=== PATIENT | male | born 1980 | race Caucasian/White ===

== ENCOUNTER 2022-05-17 01:19 | Emergency (ER) | payer BC, SELFPAY ==
[2022-05-17 01:59] VITALS: BP 141/80; PULSE 52; RESP 22; O2SAT 99; BMI 32.5
[2022-05-17 02:06] LABS: Hematocrit 45.6 % (42.0-52.0); Hemoglobin 16.6 g/dl (14.0-18.0); Mean Corpuscular HGB Conc 36.4 g/dl (31.0-36.0); Mean Corpuscular Hemoglobin 32.8 pg (27.0-33.0); Mean Corpuscular Volume 90.1 fL (80.0-98.0); Mean Platelet Volume 9.7 fL (9.4-12.4); Platelet Count 212 X10*3/uL (160-400); Red Blood Count 5.06 X10*6/uL (4.60-5.80); Red Cell Distribution Width 12.5 % (11.0-16.0)
[2022-05-17 02:24] LABS: Alanine Aminotransferase 43 U/L (0-40); Albumin Level 4.6 g/dL (3.5-5.0); Alkaline Phosphatase 81 U/L (39-117); Anion Gap 17 (12-20); Aspartate Amino Transferase 29 U/L (5-37); Bilirubin Total 0.7 mg/dL (0.0-1.0); Blood Urea Nitrogen 16 mg/dL (9-16); Calcium 9.6 mg/dL (8.4-10.2); Carbon Dioxide 26 mmol/L (22-29); Chloride 103 mmol/L (96-108); Creatinine Clr Calc Pharmacy 107.8; Estimated Glomerular Filt Rate > 60; Glucose Random 119 mg/dL (60-115); Potassium 3.8 mmol/L (3.3-5.1); Sodium 142 mmol/L (135-145); Total Protein 7.8 g/dL (6.5-8.0)
== END 2022-05-17 05:23 | disposition left against medical advice (07) ==
PROVIDERS: Emergency Provider Emergency Medicine
DX: R10.9 Unspecified abdominal pain (principal); R11.0 Nausea
CPT/HCPCS: 36415; 80053; 85027; 99281; 99283

== ENCOUNTER 2025-02-21 14:00 | Outpatient (AMB) | payer BC, SELFPAY ==
--- NOTE | 2025-02-21 14:04 | MHC.OFFVIS ---
Intake Visit Reasons: phimosis Intake Note: Patient is present for PHIMOSIS Urology Medication:NONE Antibiotic Allergy:NONE Blood Thinner:NONE TODAY'S PVR:7ML'S Gallery Or Museum Technician Required: No Allergies No Known Allergies Allergy (Verified 02/21/25 14:51) Medication List - Last Reconciled 02/21/25 by THANG Jorge albuterol sulfate 90 mcg/actuation inhalation HPI Comments Details: Ramses is a very pleasant 45-year-old male patient. He has a past medical history of anxiety induced asthma and obesity. He presents to the office today as a new patient for vasectomy evaluation as well as penile skin bridge. In discussion with the patient today he reports noting over the last 3-4 years he has been having issues with recurrent yeast infections to the head of his penis. He reports having followed up with his PCP at which time recommendations were made for urology referral for further assessment evaluation. In assessment of the patient today the penis is circumcised there does appear to be small areas of penile adhesions that are attached to the penile gland otherwise no open areas, lesions, and or drainage noted throughout the area. He is also enquiring vasectomy evaluation. Vasectomy evaluation The patient presents for vasectomy consultation.? He is currently engaged He has fathered 1 child, with a single partner? The youngest child is 25 years old His partner is aware and permissive for a vasectomy Current form of control is condoms and hormones Current employment is [] The vasectomy may be complicated due to a history of no complicating issues. Patient education has been provided via AUA video, via printed information, risks of failure, recovery time, bruising and potential pain syndrome have been stressed Discussion today focused on the presence of vasectomy and the risks, benefits and alternatives that are available. Vasectomy as intended as a permanent form of control. Printed information and literature was provided to the patient. Overall there is a one in 2500 failure rate. This can occur at any time after vasectomy. Risks were discussed highlighting hematoma, spermatocele, epididymal congestion, development of sperm antibodies, and development of chronic pain estimated between 1-5%. The procedure was reviewed in detail. Anatomical diagrams of the male genitalia were used to explain the location of the vas deferens. The vas deferens will be transected, the proximal end will be cauterized, a metal clip would be applied to separate the 2 vas deferens ends. It was explained the procedure will be done in the office and takes approximately 10-15 minutes. Less common problems that arise with vasectomy include hematoma, bleeding, allergic reaction to anesthetic, epididymal infection, epididymal congestion, scrotal discomfort, spermatic leak, spermatic granuloma and the possibility of antisperm antibodies. He understands these risks and wishes to proceed. Consent was signed at the office today. He also understands that it takes 12 weeks for sperm to fully clear the system. He will need to provide a semen sample at 12 weeks and if this is not clear a 2nd sample at 16 weeks. Medical clearance to stop using protection will only be provided if he satisfies published criteria for sperm clearance. [facility] Medical History Esophageal dysphagia Eosinophilic esophagitis Exercise-induced asthma Obesity Review of Systems Const All systems reviewed & are unremarkable except as noted in HPI and below Physical Exam Const General: cooperative, healthy appearing, comfortable, no acute distress, well developed, alert and awake Nutritional Appearance: overweight Orientation/consciousness: patient oriented x3 Limitations: no limitations HEENT Head: Yes normal to inspection, Yes normocephalic and Yes atraumatic Ears: hearing grossly normal bilaterally Eyes General: appearance normal, both eyes and all related structures Neck Neck: Yes normal visual inspection and Yes trachea midline Chest Chest palpation & inspection: normal inspection of the chest Resp Effort & Inspection: normal respiratory effort and able to speak in complete sentences Cardio Rate: regular rate GI Inspection: Yes normal to inspection General: Yes no CVA tenderness Penis: circumcised and other (adhesions) Meatus: meatus normal Scrotum: scrotum normal Testes: Testes normal Back/Spine/Pelvis Back: no CVA tenderness Skin General skin exam: no rashes or lesions noted Neuro General: patient oriented x3 Extrem General: Yes normal to inspection Psych Appearance: grossly normal and well kempt Mental Status: mental status grossly normal Speech and movement: Normal speech and movement present and Clear speech present Affect: normal affect Attitude: cooperative Thought process: Normal thought process present Thought content: Normal thought content present Insight: Fair insight present (Psych) Judgement: Fair judgement present (Psych) Office Procedures Post Void Residual Post Residual Void Post Void Residual (PVR): 7 24319-Pfrt Void Residual by ultrasound Results AMB Urinalysis, Automated UA Leukoctes 0 Jo/uL Last Edit by JULIUS Snow on 02/21/25 14:32 UA Nitrite Negative Last Edit by Sam Crum [facility] on 02/21/25 14:32 UA Urobilinogen 0.2 mg/dL Last Edit by Sam Crum [facility] on 02/21/25 14:32 UA Protein 15 mg/dL Last Edit by Sam Crum [facility] on 02/21/25 14:32 UA pH 6.0 Last Edit by Sam Crum [facility] on 02/21/25 14:32 UA Blood 0 Abbe/uL Last Edit by Sam Crum [facility] on 02/21/25 14:32 UA Specific [place] 1.015 Last Edit by Sam Crum [facility] on 02/21/25 14:32 UA Ketone Negative Last Edit by Sam Crum [facility] on 02/21/25 14:32 UA Bilirubin 0 mg/dL Last Edit by Sam Crum [facility] on 02/21/25 14:32 UA Glucose 0 mg/dL Last Edit by Sam Crum [facility] on 02/21/25 14:32 Results Reviewed Results Reviewed: Laboratory Last Values Urine pH (Auto) 6.0 02/21/25 14:30 Specific [place] (Auto) 1.015 02/21/25 14:30 Urine Protein (Auto) 15 mg/dL 02/21/25 14:30 Glucose (UA)(Auto) 0 mg/dL 02/21/25 14:30 Urine Ketones (Auto) Negative 02/21/25 14:30 Urine Blood (Auto) 0 Abbe/uL 02/21/25 14:30 Urine Nitrite (Auto) Negative 02/21/25 14:30 Urine Bilirubin (Auto) 0 mg/dL 02/21/25 14:30 Urine Urobilinogen (Auto) 0.2 mg/dL 02/21/25 14:30 Leukocyte Esterase (Auto) 0 Jo/uL 02/21/25 14:30 Assessment & Plan Assessment & Plan (1) Penile skin bridge: Code(s): N48.89 - Other specified disorders of penis Category: Medical (2) Vasectomy evaluation: Code(s): Z30.09 - Encounter for other general counseling and advice on contraception Category: Medical (3) Anxiety about health: Code(s): R45.89 - Other symptoms and signs involving emotional state Category: Medical Plan In office urinalysis results reviewed with the patient today; as noted above Vasectomy was discussed in detail; risks and benefits All questions were answered Consent obtain We discussed semen analysis in office verses fellows kit; information provided We also discussed risks and benefits of penile bridge procedure. Will schedule for penile bridge procedure in office followed by vasectomy in office. Follow-up per doctor's orders; or sooner with any issues, concerns, and or questions. Orders: Orders AMB Urinalysis Automated 02/21/25 Z13.9 - Encounter for screening, unspecified Patient Instructions: The patient had an opportunity to ask questions regarding the treatment plan. All questions were answered. Physical exam, labs, and imaging were discussed and reviewed in detail. As well as risks, benefits, and discussion of treatment choices. No major barriers to understanding were identified. The patient expressed understanding and agreement with the above treatment plan. The patient was made aware they should contact our office by phone for worsening of their current condition, the appearance of new symptoms, or with any questions or concerns. Compliance is encouraged with any medications and follow up testing that is ordered. It is a privilege to be allowed the opportunity to participate in? your urological care.? Again, if you have any questions or concerns If you have any questions or concerns please do not hesitate to contact me. The office is [phone]. This note is constructed using voice recognition software. While every effort has been made to ensure accuracy glass presser errors may have been included. Yours sincerely, THANG Jorge Coding Level of Care Code New Pt Level 4 (05289) Diagnoses Penile skin bridge N48.89 Vasectomy evaluation Z30.09 Anxiety about health R45.89 CPT Codes Post Residual Void - PVR CPT Code: 76149-Vmrh Void Residual by ultrasound ([id number])
== END 2025-02-21 14:51 | disposition home or self-care (01) ==
PROVIDERS: Visit Provider Nurse Practitioner Family
DX: Z13.9 Encounter for screening, unspecified (principal)

== ENCOUNTER → 2025-02-21 14:00 | Outpatient (BNVA) | payer OTHER, SELFPAY | PROVIDERS: Visit Provider Nurse Practitioner Family | DX: Z30.09 Encounter for other general counseling and advice on contraception (principal); N47.1 Phimosis; N48.89 Other specified disorders of penis; R45.89 Other symptoms and signs involving emotional state | CPT/HCPCS: 51798; 81003 ==

== ENCOUNTER 2025-04-03 14:10 | Outpatient (AMB) | payer OTHER, SELFPAY ==
--- NOTE | 2025-04-03 14:44 | MHC.OFFVIS ---
Intake Visit Reasons: Bridging Allergies No Known Allergies Allergy (Verified 02/21/25 14:51) HPI Comments Details: Ramses is a very pleasant 45-year-old male patient. He has a past medical history of anxiety induced asthma and obesity. He presents to the office today as a new patient for vasectomy evaluation as well as penile skin bridge. In discussion with the patient today he reports noting over the last 3-4 years he has been having issues with recurrent yeast infections to the head of his penis. He reports having followed up with his PCP at which time recommendations were made for urology referral for further assessment evaluation. In assessment of the patient today the penis is circumcised there does appear to be small areas of penile adhesions that are attached to the penile gland otherwise no open areas, lesions, and or drainage noted throughout the area. He is also enquiring vasectomy evaluation. Here today for division of penile bridge. Will defer vasectomy. Vasectomy evaluation The patient presents for vasectomy consultation.? He is currently engaged He has fathered 1 child, with a single partner? The youngest child is 25 years old His partner is aware and permissive for a vasectomy Current form of control is condoms and or rhythm Current employment is production planning/production scheduling [facility] Medical History Esophageal dysphagia Eosinophilic esophagitis Exercise-induced asthma Obesity Review of Systems Const Denies chills and Denies fever(s) Card Reports no additional complaints and Denies syncope Resp Denies cough GI Denies abdominal pain and Denies heartburn Reports as per HPI and Denies change in libido Neuro Denies syncope Psych Denies change in libido Endo Denies change in libido Physical Exam Const General: cooperative, healthy appearing, comfortable and no acute distress Orientation/consciousness: patient oriented x3 HEENT Face and sinus: Yes normal facial exam Mouth: moist mucous membranes Neck Neck: Yes normal visual inspection, Yes full ROM and Yes trachea midline Chest Chest palpation & inspection: normal inspection of the chest Resp Effort & Inspection: normal respiratory effort, able to speak in complete sentences and no respiratory distress GI Inspection: Yes normal to inspection Back/Spine/Pelvis Cervical Spine: normal cervical lordosis Thoracic/Lumbar Spine: thoracic and lumbar spine normal to inspection Skin General skin exam: no rashes or lesions noted Neuro General: patient oriented x3, gait normal, tone normal and moves all extremities Extrem General: Yes normal to inspection and Yes capillary refill normal Office Procedures Office Procedure Misc Details: Preoperative diagnosis - penile skin bridge Postoperative diagnosis - penile skin bridge Anesthesia - 1% lidocaine with epinephrine Procedure Area of glans was prepped using Betadine Local anesthetic administered Proximally 2 cm penile skin bridge noted on dorsum penis Using a small clamp the area was clamped and using handheld cautery divided Tissue was carefully removed Using 4-0 chromic sutures multiple sutures were placed approximately 8 on the proximal surface and 5 on the distal surface Office Procedure Billing Code: AMB Procedure Billing Code (CPT 75860) Assessment & Plan Assessment & Plan (1) Penile skin bridge: Code(s): N48.89 - Other specified disorders of penis Category: Medical Plan Six-month follow-up Orders: Orders AMB Office Procedure [facility] 04/07/25 N48.89 - Other specified disorders of penis Patient Instructions: This note is constructed using voice recognition software. While every effort has been made to ensure accuracy mail messenger contractor errors may have been included. Imaging studies, laboratory and physical exam results were discussed and reviewed in detail. No major barriers to patient understanding were identified. An opportunity to ask questions regarding the treatment plan was provided. All questions were answered. The patient expressed understanding and agreement with the above treatment plan. The patient is aware they should contact our office by phone for worsening of their current condition or the appearance of new urologic symptoms. Compliance is encouraged with any medications and followup testing that is ordered. It is a privilege to participate in the urologic care of your patient. If you have any questions or concerns regarding treatment for the above conditions, or other urologic issues, please do not hesitate to contact me. The office telephone contact is [phone]. Sincerely, Dr Justice Humphrey MD, [facility] - Urology Compassionate Specialist Care for the Genitourinary System Coding Level of Care Code Procedure Only Diagnoses Penile skin bridge N48.89 CPT Codes Office Procedure - Office Procedure Billing Code: AMB Procedure Billing Code ([id number])
== END 2025-04-03 15:14 | disposition home or self-care (01) ==
PROVIDERS: Visit Provider Urology
DX: N48.89 Other specified disorders of penis (principal); Z30.2 Encounter for sterilization
CPT/HCPCS: 55250

== ENCOUNTER → 2025-04-03 14:10 | Outpatient (BNVA) | payer OTHER, SELFPAY | PROVIDERS: Visit Provider Urology | DX: Z30.2 Encounter for sterilization (principal); N48.89 Other specified disorders of penis | CPT/HCPCS: 55250 ==

== ENCOUNTER 2025-06-05 15:01 | Outpatient (AMB) | payer OTHER, SELFPAY ==
--- NOTE | 2025-06-05 15:04 | MHC.OFFVIS ---
Intake Visit Reasons: 6w follow up Intake Note: Patient is present for follow up Urology Med: None Antibiotic Allergy:None Blood Thinner:None Allergies No Known Allergies Allergy (Verified 02/21/25 14:51) HPI Comments Details: Ramses is a very pleasant male. He is seen for the following urologic conditions - penile skin bridge Penile skin bridge Division performed 6 weeks ago Well-healed Review in 12 month Still contemplating vasectomy in the future Vasectomy evaluation The patient presents for vasectomy consultation.? He is currently engaged He has fathered 1 child, with a single partner? The youngest child is 25 years old His partner is aware and permissive for a vasectomy Current form of control is condoms and or rhythm Current employment is production planning/production scheduling [facility] Medical History Esophageal dysphagia Eosinophilic esophagitis Exercise-induced asthma Obesity Family History (Updated 05/28/25 @ 15:29 by Demetria Tiwari Juan) Father Prostate cancer Depressive disorder Review of Systems Const Denies chills and Denies fever(s) Card Reports no additional complaints and Denies syncope Resp Denies cough GI Denies abdominal pain and Denies heartburn Reports as per HPI and Denies change in libido Neuro Denies syncope Psych Denies change in libido Endo Denies change in libido Physical Exam Const General: cooperative, healthy appearing, comfortable and no acute distress Orientation/consciousness: patient oriented x3 HEENT Face and sinus: Yes normal facial exam Mouth: moist mucous membranes Neck Neck: Yes normal visual inspection, Yes full ROM and Yes trachea midline Chest Chest palpation & inspection: normal inspection of the chest Resp Effort & Inspection: normal respiratory effort, able to speak in complete sentences and no respiratory distress GI Inspection: Yes normal to inspection Back/Spine/Pelvis Cervical Spine: normal cervical lordosis Thoracic/Lumbar Spine: thoracic and lumbar spine normal to inspection Skin General skin exam: no rashes or lesions noted Neuro General: patient oriented x3, gait normal, tone normal and moves all extremities Extrem General: Yes normal to inspection and Yes capillary refill normal Assessment & Plan Assessment & Plan (1) Penile skin bridge: Code(s): N48.89 - Other specified disorders of penis Category: Medical Plan Twelve month follow-up Patient Instructions: This note is constructed using voice recognition software. While every effort has been made to ensure accuracy business affairs manager errors may have been included. Imaging studies, laboratory and physical exam results were discussed and reviewed in detail. No major barriers to patient understanding were identified. An opportunity to ask questions regarding the treatment plan was provided. All questions were answered. The patient expressed understanding and agreement with the above treatment plan. The patient is aware they should contact our office by phone for worsening of their current condition or the appearance of new urologic symptoms. Compliance is encouraged with any medications and followup testing that is ordered. It is a privilege to participate in the urologic care of your patient. If you have any questions or concerns regarding treatment for the above conditions, or other urologic issues, please do not hesitate to contact me. The office telephone contact is [phone]. Sincerely, Dr Justice Humphrey MD, [facility] - Urology Compassionate Specialist Care for the Genitourinary System Coding Level of Care Code Est Pt Level 3 (36642) Diagnoses Penile skin bridge N48.89
--- OUTSIDE RECORDS SUMMARY | 2025-06-05 18:22 | XMS_ITS | Clinical Summary ---
Author Organization [facility] Address [address] [place] [id number] Phone Care Team Providers Care Garment Manufacturing Supervisor Name Role Phone Pcp, Unknown Primary Care Provider Unavailabl e Encounters Date Type Department Care Team Description 05/22/2025 Telephone [facility] Gastroenterology [facility] [address] [place] [address] Tita Wilson PA-C Urgent r/s appt from Last 3 Months Social History Tobacco Use Types Packs/Day Years Used Date Smoking Tobacco: Never Assessed Education Answer Date Recorded Are you interested in more education? Not on tiffany e 04/20/2025 Are you concerned about learning? Not on file 04/20/2025 No 04/20/2025 No 04/20/2025 Digital Access Answer Date Recorded No 04/20/2025 No 04/20/2025 Reliable internet access at home? Not on file 04/20/2025 Device with a working camera? Not on file Sex and Gender Information Value Date Recorded Sex Assigned at Not on file Legal Sex Male 10:29 PM EDT Gender Identity Not on file Sexual Orientation Not on file Plan of Treatment Upcoming Encounters Date Type Department Care Team ([facility] st Contact Info) Description 08/16/2025 10:30 AM EST Office Visit [facility] [address] [place] [address] Tita Wilson PA-C [address] [id number] [email or web address] Health Maintenance Due Date Last Done Comments Adult Td,Tdap Booster 1979 LIPID PANEL 1979 DEPRESSION SCREENING 1991 SMOKING Hx and SMOKELESS TOB ACCO SCREENING 02/05/1992 HEPATITIS C SCREENING 1997 HIV ONE-TIME SCREENING (18-6 5 YEARS) 1997 COLOGUARD 02/05/2024 COLONOSCOPY 02/05/2024 COLORECTAL CANCER SCREENING 02/05/2024 FIT TEST 02/05/2024 FOBT 02/05/2024 SIGMOIDOSCOPY 02/05/2024 VIRTUAL COLONOSCOPY 02/05/2024 INFLUENZA VACCINE (#1) 2025 COVID-19 VACCINE ( - 2024-2 6 season) 2025 HEPATITIS A VACCINES Aged Out No long er eligible based on patient's age to complete this topic HIB VACCINES Aged Out No longer eligi ble based on patient's age to complete this topic IPV VACCINES Aged Out No longer eligi ble based on patient's age to complete this topic MENINGOCOCCAL VACCINES (ACWY) Aged Out No longer eligible based on patient's age to complete this topic MENINGOCOCCAL VACCINES (B) Aged Out N o longer eligible based on patient's age to complete this topic PNEUMOCOCCAL VACCINES (0-49 years) Aged Out No longer eligible based on patient's age to complete this topic Medical Devices Not on file Care Teams Garment Manufacturing Supervisor Relationship Specialty Start Date End Date Pcp, Unknown PCP - General 05/22/25 Additional Source Comments The information contained in this document represents components of the legal health record. It is not the complete legal health record.[facility]
== END 2025-06-05 15:18 | disposition home or self-care (01) ==
LOC: HO.HUSH 15:02
PROVIDERS: Visit Provider Urology
DX: N48.89 Other specified disorders of penis (principal)
CPT/HCPCS: 99024